=== PATIENT | male | born 1945 | race Caucasian/White ===

== ENCOUNTER → 2016-12-22 | Outpatient (CLI) | payer OTHER, BC ==
[~2016-12-22] MED LIST: AMLODIPINE-BEN1 EAC4 PO; ASPIR 8181 MG PO; CALCIUM 600 +1 EAC1 PO; DITROPAN XL5 M1 PO; ELIQUIS5 MG PO; IRON325 PO; NORCO 5-325 TA1 EACH PO; PREDNISONE 5 MG5 M1 PO; PROTONIX40 M1 PO; SIMVASTATIN40 MG PO; TOPROL XL25 MG PO
== END ==
LOC: NUC 12-16 08:00
DX: M25.561 Pain in right knee (principal)